=== PATIENT | female | born 1965 | race Caucasian/White ===

== ENCOUNTER 2018-02-12 14:19 | Emergency (ER) | payer MEDICARE, MEDICAID ==
--- NOTE | 2018-02-12 14:26 | ER Report ---
History and Physical Time Seen By MD: 14:26 HPI/ROS CHIEF COMPLAINT: Sore throat and chronic pain HISTORY OF PRESENT ILLNESS: This is a morbidly obese, 52-year-old female who presents to the emergency department for a sore throat and chronic pain. Patient states she is recently relocated to [place], was in [place] and was waiting for chronic pain treatment, then decided to move to [place]. She states that it's been sometime since she's had any of her chronic pain medications. She states she took ibuprofen last night at 3 in the morning. She states that she has pain in all her joints and in her neck. No new pain. She also states that she's had a sore throat for 2-3 days with an associated dry cough. Patient states she is unsure if she is cut seasonal allergies or if the dry air in this climates is causing her dry cough. She denies fevers or chills. No chest pain or shortness of breath. No nausea or vomiting. Does have intermittent diarrhea since arriving here in [place]. REVIEW OF SYSTEMS: Constitutional: No fever, no chills. Eyes: No discharge. ENT: As above. Cardiovascular: No chest pain, no palpitations. Respiratory: No cough, no shortness of breath. Gastrointestinal: No abdominal pain, no vomiting. Genitourinary: No hematuria. Musculoskeletal: As above. Skin: No rashes. Neurological: No headache. Allergies: Coded Allergies: Sulfa (Sulfonamide Antibiotics) (Verified Allergy, Unknown, 02/12/18) Home Meds Active Scripts Ibuprofen (IBUPROFEN) 800 Mg Tablet, 1 TAB PO Q8H, #12 TAB 0 Refills Prov:CAROLE JI-BC 02/12/18 Cyclobenzaprine Hcl (CYCLOBENZAPRINE HCL) 10 Mg Tablet, 5-10 MG PO TID PRN for MUSCLE SPASMS, #9 TAB 0 Refills Prov:CAROLE JIP-BC 02/12/18 Reported Medications Albuterol Sulfate (VENTOLIN HFA) 18 Gm Inh, 2 PUFF INH Q4-6H, INH 02/12/18 Metoprolol Succinate (METOPROLOL SUCCINATE) 50 Mg Tab.er.24h, 1 TAB PO QDAY, TAB 02/12/18 Pravastatin Sodium (PRAVACHOL) 20 Mg Tablet, 40 MG PO QDAY, TAB 02/12/18 Levothyroxine Sodium (LEVOTHYROXINE SODIUM) 200 Mcg Tablet, 200 MCG PO QDAY 02/12/18 Trazodone Hcl (TRAZODONE HCL) 100 Mg Tablet, 100 MG PO QHS, TAB 02/12/18 Venlafaxine Hcl (VENLAFAXINE HCL) 100 Mg Tablet, 100 MG PO QDAY 02/12/18 Fluticasone/Salmeterol (ADVAIR 100-50 DISKUS) 1 Each Disk.w.dev, 1 EACH IH BID 02/12/18 Past Medical/Surgical History The patient has a past medical and surgical history of hypothyroidism, wears glasses, hypertension, hypercholesterolemia, asthma, COPD, urinary tract infections, arthritis, chronic back pain, gastric sleeve, D&C, morbidly obese. Reviewed Nurses Notes: Yes Constitutional Vital Sign - Last 24 Hours 02/12/18 02/12/18 02/12/18 02/12/18 14:19 14:25 14:28 14:30 Temp 97.9 Pulse ??? 77 Resp 22 B/P (MAP) 154/81 152/102 (119) 154/81 (105) Pulse Ox 91 O2 Delivery Room Air 02/12/18 02/12/18 02/12/18 02/12/18 14:49 15:00 15:19 15:30 Pulse 68 66 B/P (MAP) 111/65 (80) 131/75 (93) Pulse Ox 88 02/12/18 15:47 Pulse Ox 91 Physical Exam General Appearance: The patient is alert, has no immediate need for airway protection and no signs of toxicity. Eyes: Pupils equal and round no pallor or injection. ENT, Mouth: Mucous membranes are moist. Erythema to the posterior oropharynx with mild tonsillar hypertrophy, no exudates or petechial hemorrhages. Respiratory: There are no retractions, lungs are clear to auscultation. Cardiovascular: Regular rate and rhythm, distant, no murmurs, clicks or rubs. Gastrointestinal: Abdomen is morbidly obese, soft and non tender, no masses, bowel sounds normal. Neurological: Alert and oriented 4. Moving all extremities. Following all commands. No focal neuro deficits. Skin: Warm and dry, no rashes. Musculoskeletal: Neck is supple non tender. Extremities are nontender, nonswollen and have full range of motion. DIFFERENTIAL DIAGNOSIS: After history and physical exam differential diagnosis was considered for viral pharyngitis, bacterial pharyngitis, seasonal allergies, upper respiratory infection, bronchitis and sinus infection. Medical Decision Making Data Points Laboratory Hematology Test 02/12/18 14:59 Group A Streptococcus Screen Negative (NEGATIVE) Chemistry Test 02/12/18 14:59 Group A Streptococcus Screen Negative (NEGATIVE) ED Course/Re-evaluation ED Course The patient was admitted to room. A history of physical obtained. Differential diagnoses were considered. The patient was given 60 mg IM Norflex, 60 mg IM Toradol. A rapid strep was negative. I did review the results with the patient, I did tell her this is likely a viral pharyngitis and will likely pass. I did also tell her that the dry cough could be secondary to the change in climate, recommended a humidifier. I also recommended that she follows up with and establishes a primary care provider within the next 1-2 weeks for reevaluation. I did explain to the patient that we don't treat chronic pain in the ER, I we will send a prescription for 800 mg ibuprofen and Flexeril to the patient's pharmacy. I also recommended that she follows up with the [place] [facility] for her chronic pain concerns. Patient exposed understanding, she had no other questions or concerns at this time. Patient was discharged home. Decision to Disposition Date: Feb 12, 2018 Decision to Disposition Time: 15:39 Depart Departure Latest Vital Signs Vital Signs Date Time Temp Pulse Resp B/P (MAP) Pulse Ox O2 Delivery O2 Flow Rate FiO2 02/12/18 15:47 91 02/12/18 15:30 131/75 (93) 02/12/18 15:19 66 02/12/18 14:25 97.9 22 Room Air Impression: Primary Impression: Viral pharyngitis Additional Impression: Cough in adult Condition: Improved Disposition: HOME OR SELF-CARE New Scripts Ibuprofen (IBUPROFEN) 800 Mg Tablet 1 TAB PO Q8H, #12 TAB 0 Refills Prov: CAROLE JIP- 02/12/18 Cyclobenzaprine Hcl (CYCLOBENZAPRINE HCL) 10 Mg Tablet 5-10 MG PO TID PRN for MUSCLE SPASMS, #9 TAB 0 Refills Prov: CAROLE JIP-BC 02/12/18 Patient Instructions: Acute Cough (ED), Pharyngitis (ED) Additional Instructions: Your strep test was negative, no need for antibiotics today. I believe your sore throat is a virus and will pass. Take the Flexeril as needed for the neck pain. Ibuprofen as needed for additional pain relief. You can also take Tylenol as needed for pain. Drink plenty of fluids. Try a humidifier for your sore throat and cough. Get plenty of rest. Be sure to establish with a PCP within the next 1-2 weeks. For chronic pain you can follow up with the [place] [facility]. Return to the ED for any other concerns or worsening symptoms. Problem Qualifiers CAROLE JI CREDENTIALING ASSISTANT-BC Feb 12, 2018 14:26
[2018-02-12] MEDS ORDERED: VENL100T22 PO (14:31)
[2018-02-12] MEDS ORDERED: ALB18R INH (14:31)
[2018-02-12] MEDS ORDERED: PRAV20TA65 PO (14:31)
[2018-02-12] MEDS ORDERED: LEVO200T50 PO (14:31)
[2018-02-12] MEDS ORDERED: FLUT1DIS27 IH (14:31)
[2018-02-12] MEDS ORDERED: METO50TA19 PO (14:31)
[2018-02-12] MEDS ORDERED: TRAZ100T31 PO (14:31)
[2018-02-12] MEDS ORDERED: ORPHENADRINE 60MG/2ML INJ IM ONE (15:00)
[2018-02-12] MEDS ORDERED: KETOROLAC 60 MG/2 ML VIAL IM ONE (15:00)
[2018-02-12 15:30] VITALS: BP 131/75
[2018-02-12] MEDS ORDERED: IBUP800T37 PO (15:42)
[2018-02-12] MEDS ORDERED: CYCL10TA29 PO (15:42)
== END 2018-02-12 15:49 | disposition home or self-care (01) ==
LOC: ER 14:39
DX: J02.9 Acute pharyngitis, unspecified (principal)
CPT/HCPCS: 87081; 87880; 96372; 99283; J1885; J2360

== ENCOUNTER → 2018-02-21 | Outpatient (CLI) | payer MEDICARE, MEDICAID ==
[~2018-02-21] MED LIST: ALB18R INH; CYCL10TA29 PO; DICL-190 PO; FLU60VIA41 IM; FLUT1DIS27 IH; GABA-549 PO; IBUP800T37 PO; LEVO200T50 PO; METO50TA19 PO; OXYGENHOME INH; PRAV20TA65 PO; PRAV40TA78 PO; TRAZ100T31 PO; VENL100T22 PO
[2018-02-21 14:47] LABS: PLATELET COUNT, AUTOMATED 277 K/uL (150-450)
== END ==
LOC: LAB 14:06
PROVIDERS: ATTEND Internal Medicine
DX: E66.9 Obesity, unspecified (principal); E78.5 Hyperlipidemia, unspecified; E03.9 Hypothyroidism, unspecified; M19.90 Unspecified osteoarthritis, unspecified site; F32.9 Major depressive disorder, single episode, unspecified; G47.33 Obstructive sleep apnea (adult) (pediatric); N39.0 Urinary tract infection, site not specified
CPT/HCPCS: 36415; 81001; 82040; 82247; 82306; 82310; 82374; 82435; 82465; 82565; 82947; 83036; 83718; 84075; 84132; 84155; 84295; 84443; 84450; 84460; 84478; 84520; 84550; 85025; 87088

== ENCOUNTER → 2018-03-15 | Outpatient (CLI) | payer MEDICARE, MEDICAID ==
[~2018-03-15] MED LIST changes: +ATOR40TA24 PO; +GABA-503 PO; +VENL150C3 PO
--- NOTE | 2018-03-15 17:30 | RADIOLOGY IMAGING REPORT ---
[place] [facility] [place] NAME: Eleonora Alvarado : 1965 MR: [id number] V: [id number] EXAM DATE: ORDERING PHYSICIAN: VIRGINIA ALVARADO TECHNOLOG[place] [facility] [place] Al[place] : 1965 Visit/Account:[id number] Date of Sevice: 03/15/2018 THYROID HISTORY: Patient on levothyroxine ADDITIONAL HISTORY: None. COMPARISON: None. FINDINGS: Thyroid size: Right lobe mildly enlarged Right lobe: 5.2 craniocaudad by 2.1 x 2.0 cm Left lobe: 4.2 craniocaudad by 1.6 x 1.4 cm Thyroid nodules Right lobe: 7 mm cystic nodule seen in the superior pole Left lobe: Mid lobe calcifications with posterior shadowing. 0.7 cm isoechoic nodule in the in ferior pole. Thyroid vascularity: Hypovascular Thyroid echotexture: Globally abnormal heterogenous echotexture IMPRESSION: Globally abnormal thyroid echotexture with decreased vascularity. This probably represents sequelae from long-standing chronic inflammatory process. Report Dictated By: Francois Gregory MD at 03/15/2018 5:22 PM Report E-Signed By: Francois Gregory MD at 03/15/2018 5:27 PM WSN:[email or web address]
== END ==
LOC: US 03-12 04:12
PROVIDERS: ATTEND Internal Medicine
DX: E04.2 Nontoxic multinodular goiter (principal)
CPT/HCPCS: 76536

== ENCOUNTER 2018-04-04 16:25 | Emergency (ER) | payer MEDICARE, MEDICAID ==
--- NOTE | 2018-04-04 16:34 | ER Report ---
History and Physical Time Seen By MD: 16:35 HPI/ROS CHIEF COMPLAINT: Dysuria HISTORY OF PRESENT ILLNESS: 52-year-old female patient presents to emergency room with complaint of dysuria. Patient states she's been having what she describes as her urethra staying open after she urinates. She states that she's not had any fevers or chills. She states she has not taken any medication for this. She states this been going on for the past week. Patient has not had any changes to medications. She denies any nausea or vomiting. Patient states that she had an appointment earlier today with her primary care provider, however she was unable to get there due to problems with a ride. Patient states that she has urinary tract infections 3-4 times a year. Allergies: Coded Allergies: Sulfa (Sulfonamide Antibiotics) (Verified Allergy, Unknown, 04/04/18) Home Meds Active Scripts Cephalexin 500 Mg Tab (KEFLEX 500 MG TAB) 500 Mg Tablet, 500 MG PO BID, #14 TAB Prov:SYDNI AGUIRRE 04/04/18 Diclofenac Potassium (DICLOFENAC POTASSIUM) 50 Mg Tablet, 50 MG PO BID PRN for pain, #60 TAB 6 Refills Prov:VIRGINIA ALVARADO MD 03/14/18 Gabapentin (GABAPENTIN) 600 Mg Tablet, 600 MG PO BID, #180 TAB 1 Refill Prov:VIRGIINA ALVARADO MD 03/14/18 Atorvastatin Calcium (LIPITOR) 40 Mg Tablet, 1 TAB PO QDAY, #90 TAB 1 Refill Prov:VIRGINIA ALVARADO MD 03/14/18 Albuterol Sulfate (VENTOLIN HFA) 18 Gm Inh, 2 PUFF INH Q4-6H, #3 INH 3 Refills Prov:VIRGINIA ALVARADO MD 03/14/18 Metoprolol Succinate (METOPROLOL SUCCINATE) 50 Mg Tab.er.24h, 1 TAB PO QDAY, #90 TAB 1 Refill Prov:VIRGINIA ALVARADO MD 03/14/18 Levothyroxine Sodium (LEVOTHYROXINE SODIUM) 200 Mcg Tablet, 200 MCG PO QDAY, #90 TAB 1 Refill Prov:VIRGINIA ALVARADO MD 03/14/18 Venlafaxine Hcl (VENLAFAXINE HCL ER) 150 Mg Cap.er.24h, 150 MG PO QDAY, #90 TAB 1 Refill Prov:VIRGINIA ALVARADO MD 03/14/18 Fluticasone/Salmeterol (ADVAIR 100-50 DISKUS) 1 Each Disk.w.dev, 1 EACH IH BID, #3 DISK 1 Refill Prov:VIRGINIA ALVARADO MD 03/14/18 Oxygen (OXYGEN) Inha, 3 L INH DAILY, #3 L Diagnosis chronic asthma and morbid obesity Prov:VIRGINIA ALVARADO MD 02/21/18 Past Medical/Surgical History Patient has a past medical history of hypertension, hyperlipidemia, asthma, COPD, frequent UTIs, back pain, hypothyroidism. Patient has surgical history of gastric sleeve, D&C. Reviewed Nurses Notes: Yes Smoking Status: Former Smoker Constitutional Vital Sign - Last 24 Hours 04/04/18 04/04/18 04/04/18 04/04/18 16:38 16:40 16:45 16:50 Pulse 84 88 83 B/P (MAP) 127/108 (114) Pulse Ox 95 91 88 04/04/18 04/04/18 04/04/18 04/04/18 16:51 16:55 17:00 17:05 Temp 97.7 Pulse 84 77 80 Resp 20 B/P (MAP) 127/108 126/61 (82) Pulse Ox 91 91 84 93 O2 Delivery Nasal Cannula 04/04/18 17:11 O2 Delivery Nasal Cannula O2 Flow Rate 3 Physical Exam General Appearance: The patient is alert, has no immediate need for airway protection and no current signs of toxicity. Respiratory: Chest is non tender, lungs are clear to auscultation. Cardiac: regular rate and rhythm Gastrointestinal: Abdomen is soft and non tender, no masses, bowel sounds normal. Patient had no CVA tenderness. DIFFERENTIAL DIAGNOSIS: After history and physical exam differential diagnosis was considered for urinary tract infection, dysuria. Medical Decision Making Data Points Laboratory Hematology Test 04/04/18 16:30 Urine Color Yellow Urine Clarity Cloudy Urine pH 6.0 pH (4.8-9.5) Urine Specific [place] 1.018 Urine Protein Negative mg/dL (NEGATIVE) Urine Glucose (UA) Negative mg/dL (NEGATIVE) Urine Ketones Negative mg/dL (NEGATIVE) Urine Blood Small (NEGATIVE) Urine Nitrite Negative (NEGATIVE) Urine Bilirubin Negative (NEGATIVE) Urine Urobilinogen 2.0 mg/dL (0.2-1.9) Urine Leukocyte Esterase Large (NEGATIVE) Urine RBC 21 /HPF (0-2/HPF) Urine WBC 294 /HPF (0-5/HPF) Urine Squamous Epithelial Cells Many /LPF (</=FEW) Urine Bacteria Negative /HPF (NONE-FEW) Urine Mucus None /HPF (NONE-FEW) Chemistry Test 04/04/18 16:30 Urine Color Yellow Urine Clarity Cloudy Urine pH 6.0 pH (4.8-9.5) Urine Specific [place] 1.018 Urine Protein Negative mg/dL (NEGATIVE) Urine Glucose (UA) Negative mg/dL (NEGATIVE) Urine Ketones Negative mg/dL (NEGATIVE) Urine Blood Small (NEGATIVE) Urine Nitrite Negative (NEGATIVE) Urine Bilirubin Negative (NEGATIVE) Urine Urobilinogen 2.0 mg/dL (0.2-1.9) Urine Leukocyte Esterase Large (NEGATIVE) Urine RBC 21 /HPF (0-2/HPF) Urine WBC 294 /HPF (0-5/HPF) Urine Squamous Epithelial Cells Many /LPF (</=FEW) Urine Bacteria Negative /HPF (NONE-FEW) Urine Mucus None /HPF (NONE-FEW) Urinalysis Test 04/04/18 16:30 Urine Color Yellow Urine Clarity Cloudy Urine pH 6.0 pH (4.8-9.5) Urine Specific [place] 1.018 Urine Protein Negative mg/dL (NEGATIVE) Urine Glucose (UA) Negative mg/dL (NEGATIVE) Urine Ketones Negative mg/dL (NEGATIVE) Urine Blood Small (NEGATIVE) Urine Nitrite Negative (NEGATIVE) Urine Bilirubin Negative (NEGATIVE) Urine Urobilinogen 2.0 mg/dL (0.2-1.9) Urine Leukocyte Esterase Large (NEGATIVE) Urine RBC 21 /HPF (0-2/HPF) Urine WBC 294 /HPF (0-5/HPF) Urine Squamous Epithelial Cells Many /LPF (</=FEW) Urine Bacteria Negative /HPF (NONE-FEW) Urine Mucus None /HPF (NONE-FEW) ED Course/Re-evaluation ED Course Patient was admitted on exam room, history and physical were obtained. Differe ntial diagnoses were considered. On examination lungs are clear, heart is regular, abdomen soft nontender. A urinalysis was obtained. Patient did have large leukocyte esterase with 284 white blood cells per high-power field. We will go ahead and culture the urine. I discussed the findings with the patient. We will go ahead and place her on Keflex 500 mg twice a day for 7 days. Patient states she did not get paid until tomorrow and requested that we give her something to get her through. Patient received an IM dose of Rocephin 1 g. Patient will be discharged home at this time. She is to follow-up with primary care provider the next week. She tried to emergency room if condition worsens. Patient verbalized understanding and agreement with plan. Decision to Disposition Date: Apr 04, 2018 Decision to Disposition Time: 17:26 Depart Departure Latest Vital Signs Vital Signs Date Time Temp Pulse Resp B/P (MAP) Pulse Ox O2 Delivery O2 Flow Rate FiO2 04/04/18 17:11 Nasal Cannula 3 04/04/18 17:05 80 93 04/04/18 17:00 126/61 (82) 04/04/18 16:51 97.7 20 Impression: Primary Impression: UTI (urinary tract infection) Condition: Improved Disposition: HOME OR SELF-CARE Referrals: VIRGINIA ALVARADO MD (PCP) New Scripts Cephalexin 500 Mg Tab (KEFLEX 500 MG TAB) 500 Mg Tablet 500 MG PO BID, #14 TAB Prov: SYDNI AGUIRRE 04/04/18 Patient Instructions: Urinary Tract Infection in Women (ED) Additional Instructions: Increase fluid intake. Get plenty of rest. Continue with your medications. Take the prescriptions as prescribed. Follow up with your primary care provider in the next week. Problem Qualifiers Primary Impression: UTI (urinary tract infection) Urinary tract infection type: acute cystitis Hematuria presence: with hematuria Qualified Codes: N30.01 - Acute cystitis with hematuria SYDNI AGUIRRE Apr 04, 2018 16:34
[2018-04-04 17:00] VITALS: BP 126/61
[2018-04-04] MEDS ORDERED: CEPH500T7 PO (17:26)
[2018-04-04] MEDS ORDERED: cefTRIAXone 1 GM VIAL IM ONE (17:30)
[2018-04-04] MEDS ORDERED: LIDOCAINE 1% MDV 200 MG/20 ML INJ ONE (17:30)
== END 2018-04-04 18:02 | disposition home or self-care (01) ==
LOC: ER 16:35
DX: N30.01 Acute cystitis with hematuria (principal)
CPT/HCPCS: 81001; 87088; 96372; 99283; J0696; J2001

== ENCOUNTER → 2018-09-07 | Outpatient (CLI) | payer MEDICARE, MEDICAID ==
[~2018-09-07] MED LIST changes: +ALBU2.5V36 INH; +BENZ200C15 PO; +CEPH500T7 PO; +EUCA1LOZ51 PO; -GABA-503 PO; +GABA-533 PO; +GUAI120L3 PO; +MECL25TA9 PO; +METH4TAB66 PO
== END ==
LOC: RESP 00:36
PROVIDERS: ATTEND Internal Medicine
DX: J45.20 Mild intermittent asthma, uncomplicated (principal); E66.01 Morbid (severe) obesity due to excess calories
CPT/HCPCS: 94060; 94726; 94729

== ENCOUNTER → 2018-09-14 | Outpatient (CLI) | payer MEDICARE, MEDICAID ==
[~2018-09-14] MED LIST changes: +DULO30CA35 PO; +MAGN250T5 PO; +MELO-207 PO
[2018-09-14 09:09] LABS: PLATELET COUNT, AUTOMATED 269 K/uL (150-450)
== END ==
LOC: LAB 08:45
PROVIDERS: ATTEND Internal Medicine
DX: J45.909 Unspecified asthma, uncomplicated (principal); E03.9 Hypothyroidism, unspecified; G47.33 Obstructive sleep apnea (adult) (pediatric); E66.9 Obesity, unspecified; F32.9 Major depressive disorder, single episode, unspecified; M19.90 Unspecified osteoarthritis, unspecified site; E78.5 Hyperlipidemia, unspecified
CPT/HCPCS: 36415; 82040; 82247; 82306; 82310; 82374; 82435; 82565; 82947; 83735; 84075; 84132; 84155; 84295; 84443; 84450; 84460; 84520; 84550; 85025